=== PATIENT | female | born 1995 | race Caucasian/White ===

== ENCOUNTER 2022-01-12 12:47 | Inpatient (IN) | payer OTHER ==
[~2022-01-12] VITALS: Ht 162.6 cm; Wt 90.3 kg
[2022-01-12] MEDS ORDERED: NALBUPHINE HCL 10 MG/ML AMP IVP PRN (14:15)
[2022-01-12] MEDS ORDERED: TERBUTALINE SULFATE 1 MG/ML VIAL SUBCUT ONE (14:15)
[2022-01-12] MEDS ORDERED: LR 500 ML IV ONE (14:15)
[2022-01-12] MEDS ORDERED: LR 1,000 ML IV ONE (14:15)
[2022-01-12] MEDS ORDERED: MISOPROSTOL 100 MCG TABLET (CYTOTEC) PO PRN (14:15)
[2022-01-12] MEDS ORDERED: NALBUPHINE HCL 10 MG/ML AMP IM PRN (14:15)
[2022-01-12] MEDS ORDERED: OXYTOCIN/0.9 % SODIUM CHLORIDE 1,000 ML IV SCH (14:15)
[2022-01-12 14:45] LABS: BASOPHILS % (AUTO) 0.3 % (0.0-2.0); EOSINOPHILS # (AUTO) 0.1 K/uL (0.0-0.4); EOSINOPHILS % (AUTO) 1.6 % (0.0-4.0); HEMATOCRIT 38.4 % (36-48); HEMOGLOBIN 13.4 g/dL (12.0-16.0); LYMPHOCYTES # (AUTO) 2.1 K/uL (1.0-5.5); LYMPHOCYTES % (AUTO) 23.2 % (20.5-51.5); MEAN CORPUSCULAR HEMOGLOBIN 32 pg (27-31); MEAN CORPUSCULAR HGB CONC 35 % (32-36); MEAN CORPUSCULAR VOLUME 92 fL (79.0-98.0); MONOCYTES # (AUTO) 0.6 K/uL (0.0-1.0); MONOCYTES % (AUTO) 6.5 % (1.7-9.3); NEUTROPHILS # (AUTO) 6.1 K/uL (1.8-7.7); NEUTROPHILS % (AUTO) 68.4 % (40.0-70.0); PLATELET COUNT (AUTO) 159 K/uL (130-430); RED BLOOD CELL COUNT(AUTO) 4.19 MIL/uL (4.2-6.2); RED CELL DISTRIBUTION WIDTH 13.7 % (9.0-15.0); WHITE BLOOD COUNT (AUTO) 8.9 K/uL (4.8-10.8)
[2022-01-12] MEDS ORDERED: AMPICILLIN SODIUM 2 GM in NS 100 ML IV ONE ×2 (15:00→15:30)
[2022-01-12] MEDS ORDERED: DINOPROSTONE 10 MG SUPP VG ONE (15:00)
[2022-01-12] MEDS ORDERED: MISOPROSTOL 25 MCG (0.025 MG) *QUARTER TABLET VG SCH (15:00)
[2022-01-12] MEDS ORDERED: CLINDAMYCIN 900 mg/50mL D5W 50 ML IV SCH (16:00)
[2022-01-12] MEDS: LR 1,000 ML IV SCH (16:22)
[2022-01-12] MEDS: AMPICILLIN SODIUM 1 GM in NS 50 ML IV SCH ×2 (20:41→23:29)
[2022-01-12] MEDS ORDERED: NALOXONE HCL 0.4 MG/ML AMP (NARCAN) IVP PRN (23:15)
[2022-01-12] MEDS ORDERED: AMPICILLIN SODIUM 1 GM VIAL ONE (23:24)
[2022-01-12] MEDS: MORPHINE SULFATE 10 MG/ML VIAL IVP PRN (23:27)
[2022-01-13] MEDS ORDERED: DIPH-TET-PERTUS Vaccine 0.5 ML VIAL (ADACEL) I.M. PRN (00:30)
[2022-01-13] MEDS ORDERED: MEASLES,MUMPS&RUBELLA VACC/PF 12500 UNIT/0.5 ML VIAL SUBQ PRN (00:30)
[2022-01-13] MEDS ORDERED: LANOLIN 7 GM OINT. TP PRN (00:30)
[2022-01-13] MEDS ORDERED: WITCH HAZEL LEAF 1 MED.PAD MED.PAD TP PRN (00:30)
[2022-01-13] MEDS ORDERED: OXYTOCIN/0.9 % SODIUM CHLORIDE 1,000 ML IV ONE (00:30)
[2022-01-13] MEDS ORDERED: TEMAZEPAM 15 MG CAPSULE PO PRN (00:30)
[2022-01-13] MEDS ORDERED: OXYTOCIN/0.9 % SODIUM CHLORIDE 1,000 ML IV SCH (00:30)
[2022-01-13] MEDS ORDERED: DERMOPLAST SPRAY TP PRN (00:30)
[2022-01-13] MEDS ORDERED: HYDROCORTISONE 0.5% CREAM 28.4 GM CREAM.GM. TP PRN (00:30)
[2022-01-13] MEDS ORDERED: ANUSOL 1 EA SUPP.RECT (PREPARATION H) RC PRN (00:30)
[2022-01-13] MEDS ORDERED: RHO(D) IMMUNE GLOBULIN/MALTOSE 1500 UNITS/1.3 ML (WINHRO) IM PRN (00:30)
[2022-01-13] MEDS: MORPHINE SULFATE 10 MG/ML VIAL IVP PRN (01:46)
[2022-01-13] MEDS ORDERED: fentaNYL CITRATE/PF 100 MCG/2 ML AMP ONE (02:18)
[2022-01-13] MEDS ORDERED: ROPIVACAINE HCL/PF 0.2% 200 ML ONE (02:18)
[2022-01-13] MEDS: AMPICILLIN SODIUM 1 GM in NS 50 ML IV SCH (02:49)
[2022-01-13] MEDS: LR 1,000 ML IV SCH ×2 (02:50→04:04)
[2022-01-13] MEDS ORDERED: FENT2mCg/mL-ROPIVA0.2%/NS EPID 200 ML EP SCH (03:00)
[2022-01-13] MEDS ORDERED: LR 500 ML IV ONE (03:00)
[2022-01-13] MEDS: DOCUSATE SODIUM 100 MG CAPSULE PO SCH (13:26)
[2022-01-13] MEDS: IBUPROFEN 600 MG TABLET PO SCH ×3 (13:27→23:55)
[2022-01-13] MEDS ORDERED: SENNOSIDES/DOCUSATE SODIUM 1 TAB TABLET(SENOKOT-S) PO SCH (21:00)
[2022-01-14] MEDS: IBUPROFEN 600 MG TABLET PO SCH ×3 (06:13→18:00)
[2022-01-14 07:58] LABS: HEMATOCRIT 31.8 % (36-48); HEMOGLOBIN 10.9 g/dL (12.0-16.0)
[2022-01-14] MEDS: DOCUSATE SODIUM 100 MG CAPSULE PO SCH (12:14)
[2022-01-15] MEDS: IBUPROFEN 600 MG TABLET PO SCH ×4 (00:14→18:09)
[2022-01-15] MEDS: DOCUSATE SODIUM 100 MG CAPSULE PO SCH (09:59)
[2022-01-16 21:06] LABS: FTA-Ab (T PALLIDUM) Non Reactive (Non Reactive)
== END 2022-01-15 20:00 | disposition home or self-care (01) | DRG 560 ==
LOC: SPU 12:47
PROVIDERS: ADMIT Obstetrics & Gynecology; ATTEND Obstetrics & Gynecology
PROC: 10E0XZZ Delivery of Products of Conception, External Approach (ICD-10-PCS; principal; 2022-01-12)
PROC: 3E0R3BZ Introduction of Anesthetic Agent into Spinal Canal, Percutaneous Approach (ICD-10-PCS; 2022-01-12)
PROC: 00HU33Z Insertion of Infusion Device into Spinal Canal, Percutaneous Approach (ICD-10-PCS; 2022-01-12)
DX: O36.8130 Decreased fetal movements, third trimester, not applicable or unspecified (principal); Z37.0 Single live birth; D62 Acute posthemorrhagic anemia; O40.3XX0 Polyhydramnios, third trimester, not applicable or unspecified; Z20.822 Contact with and (suspected) exposure to COVID-19; J45.909 Unspecified asthma, uncomplicated; O99.52 Diseases of the respiratory system complicating childbirth; O90.81 Anemia of the puerperium; Z3A.39 39 weeks gestation of pregnancy
CPT/HCPCS: 36415; 85018; 85025; 86592; 86780; 86886; 86900; 86901; 87536; J0290; J2270; J2590; J3010